=== PATIENT | male | born 1955 | race Two or more races ===

== ENCOUNTER → 2022-03-13 | Emergency (ER) | payer OTHER ==
[~2022-03-13] VITALS: Ht 167.6 cm; Wt 71.7 kg
[2022-03-13 00:49] VITALS: BP 134/67
--- NOTE | 2022-03-13 00:50 | NUR ---
BIBRA 62 FROM HOME C/O TRIP AND FELL +ETOH. NOTED BELLA TO HEAD FROM PRIVIOUS T&F. PRESENTING WITH LAC TO BACK OF HEAD. PATIENT ALERT AND ORIENTED X3. AMBULATORY WITH NO NLABORED BREATHING IN BED 12 AWAITING MD ALMONTE.
== END | disposition home or self-care (01) ==
LOC: ER 00:48
DX: S01.01XA Laceration without foreign body of scalp, initial encounter (principal); S09.90XA Unspecified injury of head, initial encounter; F10.129 Alcohol abuse with intoxication, unspecified; W01.0XXA Fall on same level from slipping, tripping and stumbling without subsequent striking against object, initial encounter; Y93.89 Activity, other specified; Y92.89 Other specified places as the place of occurrence of the external cause; Y99.8 Other external cause status; Y90.9 Presence of alcohol in blood, level not specified
CPT/HCPCS: 70450-TC

== ENCOUNTER 2022-04-07 22:10 | Emergency (ER) | payer OTHER ==
[~2022-04-07] VITALS: Ht 167.6 cm; Wt 68.0 kg
--- NOTE | 2022-04-07 22:20 | NUR ---
BIBRA 841 FOR WITHNESSED FALL. ADMITTED ON DRINKING ALCOHOL. PLACED ON BED, AAOX4, BREATHING EVEN AND UNLABORED.
--- NOTE | 2022-04-07 22:47 | NUR ---
PATIENT TAKEN TO CT VIA [facility]
--- NOTE | 2022-04-07 22:54 | NUR ---
PATIENT BACK FROM CT
--- NOTE | 2022-04-08 03:38 | NUR ---
Patient discharged to home in stable condition. Written and verbal after care instructions given. Patient verbalizes understanding of instruction.
[2022-04-08 03:39] VITALS: BP 125/88
== END 2022-04-08 03:44 | disposition home or self-care (01) ==
LOC: ER 22:13
DX: S01.01XD Laceration without foreign body of scalp, subsequent encounter (principal); F10.229 Alcohol dependence with intoxication, unspecified; W01.0XXD Fall on same level from slipping, tripping and stumbling without subsequent striking against object, subsequent encounter; Y90.9 Presence of alcohol in blood, level not specified
CPT/HCPCS: 70450-TC

== ENCOUNTER 2022-08-30 04:28 | Emergency (ER) | payer OTHER ==
[~2022-08-30] VITALS: Ht 162.6 cm; Wt 74.8 kg
--- NOTE | 2022-08-30 05:00 | NUR ---
TO ER BED 4. BIBRA60 FOR LAC BACK OF HEAD S/P GLF. PT ADMITS TO ETOH. PT IS ALERT. RR EVEN AND NONLABORED. CONNECTED TO MONITOR
--- NOTE | 2022-08-30 05:07 | NUR ---
PT GOING [facility]
--- NOTE | 2022-08-30 06:38 | NUR ---
Patient discharged to home in stable condition. Written and verbal after care instructions given. Patient verbalizes understanding of instruction.
[2022-08-30 06:43] VITALS: BP 154/78
== END 2022-08-30 06:43 | disposition home or self-care (01) ==
LOC: ER 04:41
DX: S01.01XA Laceration without foreign body of scalp, initial encounter (principal); F10.129 Alcohol abuse with intoxication, unspecified; R51.9 Headache, unspecified; W01.0XXA Fall on same level from slipping, tripping and stumbling without subsequent striking against object, initial encounter; Y93.89 Activity, other specified; Y92.89 Other specified places as the place of occurrence of the external cause; Y99.8 Other external cause status; Y90.9 Presence of alcohol in blood, level not specified
CPT/HCPCS: 70450-TC; 72125-TC